=== PATIENT | female | born 1990 ===

== ENCOUNTER 2021-11-08 21:07 | Day surgery (SDC) | payer OTHER ==
[2021-11-08] MEDS ORDERED: hydrALAZINE 20 MG/ML VIAL SLOW IVP PRN (21:18)
[2021-11-08 21:52] VITALS: BMI 38.9
[2021-11-08] MEDS ORDERED: Promethazine HCl 25 MG in Sodium Chloride 0.9% 50 ML IVPB PRN (22:06)
[2021-11-08] MEDS ORDERED: Acetaminophen 500 MG TAB PO SCH (22:15)
[2021-11-08] MEDS ORDERED: Lactated Ringer's 1,000 ML IV SCH (22:15)
[2021-11-08] MEDS ORDERED: Metoclopramide HCl 10 MG/2 ML VIAL IVP PRN (22:26)
[2021-11-08] MEDS ORDERED: diphenhydrAMINE 50 MG/ML VIAL IVP SCH (22:30)
[2021-11-08 23:06] LABS: #Monocytes 1.1 10x3/uL (0.0-1.1); #Neutrophils 7.5 10x3/uL (1.5-8.4); %Basophils 0.2 % (0.0-2.0); %Eosinophils 0.3 % (0.0-6.0); %Lymphocytes 10.2 % (18.0-47.0); %Monocytes 11.7 % (0.0-10.0); %Neutrophils 77.2 % (40.0-75.0); Hemoglobin 11.1 g/dL (12.0-15.5); Mean Corpuscular HGB CONC 34.5 g/dL (32.0-36.0); Mean Corpuscular Hemoglobin 31.3 pg (27.0-33.0); Mean Corpuscular Volume 90.7 fl (81.6-98.3); Mean Platelet Volume 11.2 fl (7.4-10.4); Platelet Count 245 10x3/uL (150-450); RBC Distribution Width 13.4 % (11.5-14.5); Red Blood Cell (RBC) Count 3.55 10x6/uL (3.90-5.03); White Blood Cell (WBC) Count 9.7 10x3/uL (3.5-10.5)
[2021-11-08 23:23] LABS: ALT (SGPT) Less than 6 U/L (8-55); AST (SGOT) 14 U/L (5-34); Albumin 3.4 g/dL (3.5-5.0); Alkaline Phosphatase 109 U/L (40-110); Anion Gap 12 mmol/L (10-20); BUN (Urea Nitrogen) 7 mg/dL (7.0-18.7); Bilirubin, Total 0.2 mg/dL (0.2-1.2); Calc. Creatinine Clearance 238 mL/min (70-130); Calcium 9.4 mg/dL (7.8-10.44); Carbon Dioxide 21 mmol/L (22-29); Chloride 104 mmol/L (98-107); Estimated GFR 127; Globulin 3.3 g/dL (2.4-3.5); Glucose 76 mg/dL (70-105); Potassium 3.9 mmol/L (3.5-5.1); Protein, Total 6.7 g/dL (6.0-8.3); Sodium 133 mmol/L (136-145)
[2021-11-08 23:39] LABS: SARS-CoV-2 NAA Rapid Test DETECTED (NotDetected)
[2021-11-08] MEDS ORDERED: NIRMATRELVIR 150 MG/RITONAVIR 100 MG TABLET PO SCH (23:45)
[2021-11-09] MEDS ORDERED: NIRMATRELVIR 150 MG/RITONAVIR 100 MG TABLET PO SCH (09:00)
== END 2021-11-09 00:05 | disposition home or self-care (01) ==
LOC: CSHLD/OP 21:07
PROVIDERS: ATTEND Obstetrics & Gynecology
DX: O98.513 Other viral diseases complicating pregnancy, third trimester (principal); U07.1 COVID-19; O99.891 Other specified diseases and conditions complicating pregnancy; R51.9 Headache, unspecified; H53.8 Other visual disturbances; R80.9 Proteinuria, unspecified; O24.410 Gestational diabetes mellitus in pregnancy, diet controlled; O99.613 Diseases of the digestive system complicating pregnancy, third trimester; K21.9 Gastro-esophageal reflux disease without esophagitis; Z3A.39 39 weeks gestation of pregnancy; Z79.899 Other long term (current) drug therapy
CPT/HCPCS: 36415; 80053; 82570; 84156; 85025; 96360; 96375; 99285; J1200; J2550; J2765; U0002